=== PATIENT | male | born 1960 | race Caucasian/White ===

== ENCOUNTER → 2020-05-29 | Outpatient (CLI) | payer BC | LOC: LAB 10:19 | PROVIDERS: ATTEND Family Medicine | DX: R06.02 Shortness of breath (principal); M79.10 Myalgia, unspecified site; R05 Cough; Z20.828 Contact with and (suspected) exposure to other viral communicable diseases ==

== ENCOUNTER → 2021-09-09 | Outpatient (CLI) | payer BC | LOC: SJCVCIMAG 10:45 | PROVIDERS: ATTEND Internal Medicine Cardiovascular Disease | DX: I65.23 Occlusion and stenosis of bilateral carotid arteries (principal); I77.1 Stricture of artery; I70.8 Atherosclerosis of other arteries; I73.9 Peripheral vascular disease, unspecified; I77.9 Disorder of arteries and arterioles, unspecified; I25.10 Atherosclerotic heart disease of native coronary artery without angina pectoris; I10 Essential (primary) hypertension; E78.00 Pure hypercholesterolemia, unspecified; E78.1 Pure hyperglyceridemia; Z82.49 Family history of ischemic heart disease and other diseases of the circulatory system; Z87.891 Personal history of nicotine dependence; Z72.89 Other problems related to lifestyle; Z79.82 Long term (current) use of aspirin; Z79.84 Long term (current) use of oral hypoglycemic drugs; Z79.899 Other long term (current) drug therapy ==

== ENCOUNTER → 2021-09-21 | Outpatient (CLI) | payer BC ==
[~2021-09-21] VITALS: Ht 182.9 cm; Wt 97.7 kg
[~2021-09-21] MED LIST: ASPIRIN EC81 M1 PO; BENICAR40 MG PO; CENTRUM SILVER1 EAC7 PO; CITRUCEL500 MG PO; CLOPIDOGREL75 MG PO; FLOMAX0.4 MG PO; HYDROCHLOROTH12.5 M2 PO; JARDIANCE10 MG PO; LEXAPRO20 MG PO; METFORMIN HCL500 M3 PO; MOBIC15 MG PO; ROSUVASTATIN CA20 MG PO; VASCEPA1 GM PO; VITAMIN C1000 MG PO
[2021-09-21 07:36] VITALS: BP 144/80
--- NOTE | 2021-09-24 16:28 | CATHLAB ---
[facility] [place] [address] INVASIVE PROCEDURE REPORT Name: JAZZ PARKS III Room #: REG VIMAL NazarioCourtney#: [id number] Admission: 09/21/21 Attend Phys: Harris Moss MD Discharge: Date of : 56 Report #: [id number] THIS REPORT FOR: cc: Brian Epps MD, Neal A. MD Mancuso, Gerald M. MD [facility] ~ APPROVED REPORT Study performed: 09/21/2021 09:57:01 Patient Details Patient Status: Out-Patient Room #: The patient is a 61 year-old male Event Personnel Mj Rodriguez Dumper, Harris Moss Interventional Radiologist, Yamileth Yoder RTR Monitor, Susan Kerr(R)() Victorino Loo Jessica RN blending machine operator Performed Right and Left Heart Cath w/or w/o Coronarie [id number] [facility] [id number] Initial Mod Sed Same Phys/QHP [facility] [id number] Mod Sed Same Phys/QHP Ea [id number] Procedure Narrative The was infiltrated with 1% Lidocaine subcutaneous anesthesia. A 7F 11CM BRITE-TIP sheath was inserted into the RFA^. Coronary angiography was performed using coronary diagnostic catheters. The right coronary system was accessed and visualized with a JR4 catheter. The left coronary system was accessed and visualized with a JL4 catheter. The left ventricle was accessed and visualized with a PIGTAIL catheter. Left ventriculogram was performed in 30 degree projection. Closure device was deployed with a Fr MYNXGRIP 6/7F #[id number]. The patient tolerated the procedure well and there were no complications associated with the procedure. There was no hematoma. Intraoperative Conscious Sedation Sedation start time: 8:55 Case end Time: 11:20 Fentanyl 150 mcg Versed 3 mg Sedation, fluoro and contrast totals are a combined total of both a right and left heart cath and a subclavian angio procedure. [facility] [place] [address] INVASIVE PROCEDURE REPORT Name: CHARLYJAZZ OSWALD [facility] Room #: REG [facility] [id number] Admission: 09/21/21 Attend Phys: Harris Moss, Discharge: Date of : 56 Report #: [id number] Fluoro Time: 15.90 minutes Dose: DAP 34558.40 cGycm2 1765 mGy Contrast Type and Amount: Visipaque 179 ml Hemodynamics The right atrial mean pressure is 14 mmHg. The right ventricular pressure is 43/7 mmHg. The pulmonary artery pressure is 42/12 mmHg with a mean of 25 mmHg. The mean pulmonary capillary wedge pressure is 14 mmHg. The aortic pressure is 165/76 mmHg with a mean of 101 mmHg. The left ventricular pressure is 145/6 mmHg with a mean of mmHg. The left ventricular end diastolic pressure is 15 mmHg. The cardiac output using thermo method is 6.70 L/min. The cardiac index using thermo method is 3.05 L/min/m2. PCI Technique Lesion Percutaneous coronary intervention was performed on the Left subclavian. Conclusion #1 Normal left ventricular size and systolic function EF 60%. #2 left main mildly diseased and calcified but no high-grade occlusive disease giving rise to LAD and circumflex. #3 LAD has a proximal mid vessel lesion at a diagonal takeoff previously noted. This is in the 60 to 70% range but appears unchanged in a relatively small caliber LAD the diagonal parallels this vessel and is larger and widely patent. #4 small nondominant circumflex no occlusive disease. #5 dominant right coronary artery with mild calcification eccentric lesion of 30 to 40% proximal and mid vessel with a preserved PDA TAQUERIA. Recommendations and plan: Continue aggressive risk factor modification no indication for coronary intervention. Follow-up arranged <ELECTRONICALLY SIGNED> By: Mj Rodriguez MD, FACC 09/24/21 1628 [id number] 162 Mj Rodriguez MD, FACC /INF
== END | disposition home or self-care (01) ==
LOC: CATH 06:43
PROVIDERS: ATTEND Nuclear Medicine Nuclear Cardiology
DX: I25.10 Atherosclerotic heart disease of native coronary artery without angina pectoris (principal); I77.1 Stricture of artery; G45.8 Other transient cerebral ischemic attacks and related syndromes; I70.1 Atherosclerosis of renal artery; M79.602 Pain in left arm; I10 Essential (primary) hypertension; E11.9 Type 2 diabetes mellitus without complications; E78.1 Pure hyperglyceridemia; K21.9 Gastro-esophageal reflux disease without esophagitis; Z98.890 Other specified postprocedural states; Z79.899 Other long term (current) drug therapy; Z96.653 Presence of artificial knee joint, bilateral; Z82.49 Family history of ischemic heart disease and other diseases of the circulatory system; Z87.891 Personal history of nicotine dependence; Z88.8 Allergy status to other drugs, medicaments and biological substances